=== PATIENT | female | born 1950 | race Caucasian/White ===

== ENCOUNTER 2017-11-14 12:33 | Emergency (ER) | payer MEDICARE, MEDICAID ==
[~2017-11-14] VITALS: Ht 154.9 cm; Wt 70.0 kg
[~2017-11-14 12:33] MED LIST: ASPI-1265 PO; CITA20TA11 PO; CLA10T PO; EZET10TA14 PO; SUBC1EAC17 SQ
[2017-11-14 12:35] VITALS: BP 138/73
[2017-11-14] MEDS ORDERED: COLC1TAB2 PO (13:14)
[2017-11-14] MEDS ORDERED: CEPH500C5 PO (13:14)
== END 2017-11-14 13:44 | disposition home or self-care (01) ==
LOC: ER 12:34
DX: M19.90 Unspecified osteoarthritis, unspecified site (principal); M79.674 Pain in right toe(s); E11.9 Type 2 diabetes mellitus without complications; Z90.49 Acquired absence of other specified parts of digestive tract; Z88.2 Allergy status to sulfonamides; Z79.82 Long term (current) use of aspirin; Z79.899 Other long term (current) drug therapy; Z88.8 Allergy status to other drugs, medicaments and biological substances
CPT/HCPCS: 29125; 73130; 73660; 99284; L3260

== ENCOUNTER 2018-04-21 01:45 | Outpatient (CLI) | payer MEDICARE, MEDICAID ==
[~2018-04-21 01:45] MED LIST changes: +CEPH500C5 PO; +CITA-278 PO; -CITA20TA11 PO; +COLC1TAB2 PO
== END 2018-04-21 23:59 | disposition home or self-care (01) ==
LOC: DIABETIC 01:45
PROVIDERS: ATTEND Specialist
DX: E11.65 Type 2 diabetes mellitus with hyperglycemia (principal); Z79.82 Long term (current) use of aspirin; Z79.4 Long term (current) use of insulin; Z88.2 Allergy status to sulfonamides; Z88.8 Allergy status to other drugs, medicaments and biological substances
CPT/HCPCS: G0108